=== PATIENT | female | born 1950 | race African-American/Black ===

== ENCOUNTER → 2021-11-07 | Day surgery (SDC) | payer OTHER, MEDICARE ==
[~2021-11-07] VITALS: Ht 152.4 cm; Wt 56.0 kg
[~2021-11-07] MED LIST: AMLO-186 PO; ASPI-630 PO; ATOR40TA59 PO; CARV25TA2 PO; CLOP75TA PO; ESOM20CA30 PO; GABA-585 PO; HYDR-2868 PO; INSU100I13 SQ; INSU100V31 SQ; IV NORMAL SALINE 1000ML BAG 1,000 ML IV SCH; LIDOCAINE 2% PF 5 ML VIAL. ONE; LOSA25TA54 PO; LUBI8CAP4 PO; METH2.5T PO; PROPOFOL 10 MG/ML (20ML) VIAL. IV ONE
[2021-11-07 08:47] VITALS: BP 132/75
[2021-11-07 09:55] VITALS: BP 118/60
--- NOTE | 2021-11-08 01:05 | HP ---
DATE OF SERVICE: 11/07/2021 ADMIT DATE: 11/07/2021 UPDATED HISTORY AND PHYSICAL REFERRING PHYSICIAN: Vipul Harmon MD. REASON: History of colon polyps with epigastric abdominal pain. HISTORY OF PRESENT ILLNESS: A 70-year-old female whose past medical history is significant for colonic polyps, constipation, anemia, hypertension as well as diabetes, reflux, arthritis and in addition, she has increased bloating and heartburn. Despite omeprazole therapy, she does have to take Plavix as a risk factor for ulcers as well as aspirin. With continued issues, EGD and colonoscopy are recommended. PAST MEDICAL HISTORY: Hypertension, anemia, constipation, history of colonic polyps, diabetes mellitus. ALLERGIES: ACETAMINOPHEN, OXYCODONE, PANTOPRAZOLE, AND ROSIGLITAZONE. MEDICATIONS: Include aspirin, atorvastatin, Plavix, omeprazole, gabapentin, hydralazine, methotrexate. FAMILY HISTORY: Significant for diabetes in multiple family members, hypertension in multiple family members, breast cancer in several siblings, CT in her mother, hypertension in multiple family members. SOCIAL HISTORY: Nonsmoker, social drinker. PAST SURGICAL HISTORY: Significant for cholecystectomy, colon resection, tubal ligation, cholecystectomy. REVIEW OF SYSTEMS: Per records. PHYSICAL EXAMINATION: GENERAL: Reveals a well-nourished, well-developed female who is alert, cooperative, in no acute distress. VITAL SIGNS: Temperature 98.1, pulse 71, respiratory rate 20. LUNGS: Clear. CARDIOVASCULAR: Reveals an S1, S2, without S3, S4 or appreciable murmur. ABDOMEN: Reveals a soft abdomen with normoactive bowel sounds without appreciable hepatosplenomegaly. Epigastric tenderness to deep palpation with multiple surgical incisions. IMPRESSION: 1. History of colonic polyps. Surveillance exam is recommended at this time. Risks and benefits of procedure including risk of hemorrhage and perforation with operation were discussed. She is willing to proceed. 2. Epigastric abdominal pain, status post cholecystectomy. Differential includes peptic ulcer disease, gastroparesis, celiac, malignancy. Therefore, recommend upper endoscopy. Risks and benefits have been previously discussed. The patient is willing to proceed. BRANDI/SHANNAN DR: Mulu TID: [id number]
--- NOTE | 2021-11-08 14:11 | PATHOLOGY ---
[facility] Accession Number: [id number] . 01 Material submitted: . esophagus - DISTAL ESOPHAGUS BIOPSY. Modifiers: distal . 01 Clinical history: . ABD/PAIN, BLOATING EGD R/O BIRD'S . 02 Diagnosis: Esophageal biopsies: - Reflux changes. (JPM:natalie; 11/08/2021) S 11/08/2021 1154 Local . 02 Comment: Sections of the distal esophageal biopsy reveal segments of focally tangentially oriented hyperplastic squamous esophageal mucosa. The findings are consistent with reflux changes. There is no evidence of Bird's change, dysplasia, or malignancy. (JPM:natalie; 11/08/2021) . 02 Electronically signed: . Cristian Gaitan MD, Pathologist NPI- [id number] . 01 Gross description: . The specimen is received in formalin, labeled "Tirado, Chiquita, distal esophagus BX". Received are 3 segments of pale coffey tissue ranging in size from 0.3-0.5 cm in maximum dimensions. The specimen is entirely submitted in cassette A1. ([facility]; 11/07/2021) NRI/NRI 11/07/2021 1844 Local . 02 Pathologist provided ICD-10: R10.9, R14.0 . 02 CPT . 823057 Specimen Comment: A courtesy copy of this report has been sent to [phone], [phone] Specimen Comment: [id number] Specimen Comment: Report sent to / DR LORENZO Specimen Comment: A duplicate report has been generated due to demographic updates. Performed at: 01 [facility] [address], [place], [place] [id number] MD Manny Richardson MD Phone: [phone] Performed at: [address] [id number] MD Cristian Gaitan MD Phone: [phone]
== END | disposition home or self-care (01) ==
LOC: ENDOS 08:14
PROVIDERS: ATTEND Internal Medicine Gastroenterology
DX: Z12.11 Encounter for screening for malignant neoplasm of colon (principal); R10.13 Epigastric pain; R12 Heartburn; R14.0 Abdominal distension (gaseous); K21.00 Gastro-esophageal reflux disease with esophagitis, without bleeding; K64.0 First degree hemorrhoids; K57.30 Diverticulosis of large intestine without perforation or abscess without bleeding; K63.89 Other specified diseases of intestine; K31.89 Other diseases of stomach and duodenum; I10 Essential (primary) hypertension; E78.00 Pure hypercholesterolemia, unspecified; E11.9 Type 2 diabetes mellitus without complications; M19.90 Unspecified osteoarthritis, unspecified site; Z90.49 Acquired absence of other specified parts of digestive tract; Z98.890 Other specified postprocedural states; Z79.899 Other long term (current) drug therapy; Z79.82 Long term (current) use of aspirin; Z82.49 Family history of ischemic heart disease and other diseases of the circulatory system; Z83.3 Family history of diabetes mellitus; Z86.010 Personal history of colon polyps; Z80.3 Family history of malignant neoplasm of breast
CPT/HCPCS: 43239; 45378; 82962; J2704